=== PATIENT | male | born 1950 | race Caucasian/White ===

== ENCOUNTER → 2018-07-09 | Outpatient (CLI) | payer MEDICARE ==
[~2018-07-09] MED LIST: AMIO200T50 PO; AMIO400T5 PO; ASCO500T20 PO; ATEN-155 PO; CLD600T PO; DCS100C PO; FISH1CAP15 PO; HYDR25TA4 PO; LSNP20T PO; MULT-974 PO; POTA99TA18 PO; RANI150C11 PO; RIVA20TA2 PO
== END ==
LOC: CARD 13:31
PROVIDERS: ATTEND Internal Medicine Cardiovascular Disease
DX: I10 Essential (primary) hypertension (principal); I48.0 Paroxysmal atrial fibrillation; R06.02 Shortness of breath; E66.9 Obesity, unspecified; I08.1 Rheumatic disorders of both mitral and tricuspid valves
CPT/HCPCS: 93306

== ENCOUNTER → 2018-08-13 | Outpatient (CLI) | payer MEDICARE ==
[~2018-08-13] VITALS: Ht 193 cm; Wt 142.4 kg
[~2018-08-13] MED LIST changes: +CATHETER FLUSH 10 ML SYR IV PRN; +REGADENOSON 0.4 MG/5 ML SYR (LEXISCAN) IV ONE
[2018-08-13 09:24] VITALS: BP 152/79
[2018-08-13 09:39] VITALS: BP 108/67
--- NOTE | 2018-08-13 13:21 | STRESS TEST ---
DATE OF SERVICE: 08/13/2018 INDICATION: Chest pain. REFERRING PHYSICIAN: . Baseline heart rate is 61, baseline blood pressure 152/79. Baseline EKG is sinus rhythm with no ischemic changes. In summary, the patient was injected with 10.83 mCi of technetium-99 Myoview and the resting images were obtained. Then, the patient started exercising on standard Macario protocol. He was unable to exercise beyond 1 minute and 40 seconds on standard Macario protocol. Test was terminated and converted to Lexiscan Myoview stress test. The patient received 0.4 mg of Lexiscan followed by 29.6 mCi of technetium-99 Myoview. Throughout the test, there were no EKG changes. The resting and stress images were reviewed and compared in the short axis, horizontal long axis, and vertical long axis views. Review of the images showed diaphragmatic attenuation with typical male pattern, no significant ischemia or infarction was seen. SSS is 1. SDS is 1. TID value 1.0. On the gated images, the left ventricle appeared to be in normal size with normal contractility. Calculated ejection fraction is 61%. CONCLUSION: 1. The patient was unable to exercise beyond 1 minute and 40 seconds on standard Macario protocol, test was converted to Lexiscan, patient tolerated Lexiscan well. 2. Typical male pattern with diaphragmatic attenuation with no significant ischemia or infarction on SPECT images. 3. Normal left ventricular size with normal contractility. Calculated ejection fraction is 61%. Job ID: [id number] DocumentID: [id number] Dictated Date: 08/13/2018 11:39:42 Political Advisor Date: 08/13/2018 13:20:58 Dictated By: POOL SHAH MD
== END ==
LOC: CARD 07:15
PROVIDERS: ATTEND Internal Medicine Cardiovascular Disease
DX: R06.00 Dyspnea, unspecified (principal); I10 Essential (primary) hypertension; R06.02 Shortness of breath; I48.0 Paroxysmal atrial fibrillation; E66.9 Obesity, unspecified; Z68.38 Body mass index [BMI] 38.0-38.9, adult
CPT/HCPCS: 78452; 93017

== ENCOUNTER 2019-09-18 07:20 | Day surgery (SDC) | payer MEDICARE, OTHER ==
[2019-09-18] VITALS (7 sets, daily range): BP systolic 99–130; BP diastolic 55–88
[~2019-09-18] VITALS: Ht 193 cm; Wt 122.0 kg
[~2019-09-18 07:20] MED LIST changes: -CATHETER FLUSH 10 ML SYR IV PRN; -REGADENOSON 0.4 MG/5 ML SYR (LEXISCAN) IV ONE
[2019-09-18] MEDS ORDERED: LIDOCAINE 1% INJ 20 ML 20 ML VIAL ONE (07:26)
[2019-09-18] MEDS ORDERED: NS IV 1000 ML 1,000 ML ONE (07:26)
[2019-09-18] MEDS ORDERED: LIDOCAINE 2% VISCOUS 15 ML UDC ONE (07:26)
[2019-09-18] MEDS ORDERED: NS IV 1000 ML 1,000 ML IV ONE (07:28)
[2019-09-18] MEDS ORDERED: MIDAZOLAM 5 MG/5 ML (VERSED) VIAL IV ONE (07:30)
[2019-09-18] MEDS ORDERED: LIDOCAINE 2% VISCOUS 15 ML UDC PO ONE (07:30)
[2019-09-18] MEDS ORDERED: proPOfol 200 MG/20 ML (DIPRIVAN) VIAL IV ONE (07:47)
[2019-09-18] MEDS ORDERED: MIDAZOLAM 5 MG/5 ML (VERSED) VIAL ONE (07:47)
[2019-09-18 07:59] LABS: MEAN PLATELET VOLUME 10.4 FL (7.4-10.4); RED CELL DISTRIBUTION WIDTH 13.5 % (10.0-14.5); WHITE BLOOD COUNT 5.6 10^3/uL (4.3-11.0)
[2019-09-18 08:17] LABS: INR 1.1 (0.8-1.4); PROTHROMBIN TIME PATIENT 14.5 SEC (12.2-14.7)
--- NOTE | 2019-09-18 08:18 | Diagnostic Imaging Report ---
Indication: Arrhythmia, atrial fibrillation Portable chest 10:09 AM Heart size and pulmonary vascularity are normal. Lungs are clear. There are no effusions or pneumothoraces. IMPRESSION: Negative chest Dictated by: Dictated on workstation # [id number]
[2019-09-18 08:19] LABS: ALANINE AMINOTRANSFERASE 19 U/L (0-55); ALKALINE PHOSPHATASE 52 U/L (40-136); BILIRUBIN,TOTAL 0.6 MG/DL (0.1-1.0); BUN/CREATININE RATIO 21; CALCIUM 8.9 MG/DL (8.5-10.1); CARBON DIOXIDE 27 MMOL/L (21-32); CHLORIDE 106 MMOL/L (98-107); CHOLESTEROL 151 MG/DL (< 200); CREATININE SERUM 0.85 MG/DL (0.60-1.30); GFR ESTIMATED > 60; GLUCOSE 99 MG/DL (70-105); HDL CHOLESTEROL 49 MG/DL (40-60); POTASSIUM 4.2 MMOL/L (3.6-5.0); SODIUM 139 MMOL/L (135-145); TOTAL PROTEIN 6.3 GM/DL (6.4-8.2); TRIGLYCERIDES 60 MG/DL (<150); VLDL CHOLESTEROL 12 MG/DL (5-40)
--- NOTE | 2019-09-18 08:21 | Cardiac Procedure Note-CS/ASA ---
Pre-Procedure Note Pre-Op Procedure Note H&P Reviewed The H&P was reviewed, patient examined and no changes noted. Date H&P Reviewed: Sep 18, 2019 Time H&P Reviewed: 08:20 Conscious Sedation Pre-Proced Time 08:20 ASA Score 3 For ASA 3 and 4: Consider anesthesia and medical clearance. Also, for patients with a history of failed moderate sedation consider anesthesia. Airway Lungs Heart ASA score ASA 1: a normal healthy patient ASA 2: a patient with a mild systemic disease (mid diabetes, controlled hypertension, obesity x ASA 3: a patient with a severe systemic disease that limits activity (angina, COPD, prior Myocardial infarction) ASA 4: a patient with an incapacitating disease that is a constant threat to life (CHF, renal failure) ASA 5: a moribund patient not expected to survive 24 hrs. (ruptured aneurysm) ASA 6: a declared brain- patient whose organs are being harvested. For emergent operations, add the letter E after the classification Mallampati Classification Grade 3 Sedation Plan Analgesia, Amnesia, Plan communicated to team members, Discussed options with patient/fam, Discussed risks with patient/fam The patient is an appropriate candidate to undergo the planned procedure, sedation, and anesthesia. The patient immediately re-assessed prior to indication. POOL SHAH MD Sep 18, 2019 08:21
[2019-09-18] MEDS ORDERED: AMLO2.5T4 PO (08:26)
[2019-09-18] MEDS ORDERED: ATOR10TA66 PO (08:26)
[2019-09-18] MEDS ORDERED: APIX5TAB PO (08:26)
[2019-09-18] MEDS ORDERED: ASPI-983 PO (08:26)
[2019-09-18] MEDS ORDERED: DRON400T2 PO (10:24)
--- NOTE | 2019-09-18 10:26 | Cardioversion ---
Cardioversion PROCEDURE PHYSICIAN: Pool Tapai DATE OF PROCEDURE: 09/18/19 DIRECT EXTERNAL ELECTRICAL CARDIOVERSION: Indications: Atrial Fibrillation with rapid ventricular rate Preoperative diagnoses: Atrial Fibrillation with rapid ventricular rate Postoperative diagnosis: Sinus rhythm, Successful Electrical Cardioversion History: 69-year-old gentleman with history of atrial fibrillation ablation, has been doing well, seen in my office and noted to be in atrial fibrillation. Asymptomatic. Started on oral anticoagulation again and brought for KOTA and cardioversion and I will start him on antiarrhythmic medication after cardioversion Anesthesia: By Anesthesia services Complications: None Specimen: None Contrast: 0 Flouroscopy: none Procedure Details: The patient was brought the labor conciliator after informed consent was taken, all the risks and complications were explained including the risk of stroke. Electrical cardioversion was carried out with anesthesia support with propofol. 200 joules of synchronized shock was delivered through external patches which failed initially with 120 J repeat shock with 150 J promptly restored sinus rhythm. The patient tolerated the procedure well. Conclusions: Successful cardioversion in terminating atrial fibrillation Final Diagnosis: Paroxysmal atrial fibrillation Hypertension Hyperlipidemia POOL TAPIA MD Sep 18, 2019 10:26
--- NOTE | 2019-09-18 10:27 | Implantation of Loop Monitor ---
Implant of Loop Monitior IMPLANTATION OF LOOP MONITOR REPORT DATE OF PROCEDURE: 09/18/19 PREOP DIAGNOSIS: Paroxysmal atrial fibrillation POSTOP DIAGNOSIS: Paroxysmal atrial fibrillation PROCEDURE DETAILS: The patient is a 69 male with history of paroxysmal atrial fibrillation requiring long-term surveillance. Therefore implantable loop recorder was discussed and agreed with the patient. Informed consent was taken. All risks and complications were discussed at length. The patient was draped and prepped in the usual sterile fashion. Local anesthesia was lidocaine, which was given in the substernal area close to the 4th intercostal space. Loop monitor Med[employer]onic [id number] was implanted according to the protocol. Steri-Strips were placed at the end of the procedure. There were no complications and the patient tolerated the procedure well. The device was interrogated with a voltage of. ANESTHESIA: Local anesthesia with lidocaine. COMPLICATIONS: None CONTRAST/FLUOROSCOPY: None CONCLUSION: Successful implantation for loop recorder FINAL DIAGNOSIS: Paroxysmal atrial fibrillation Hypertension Hyperlipidemia POOL SHAH MD Sep 18, 2019 10:27
--- NOTE | 2019-09-18 11:09 | NUR ---
SEE ANESTHESIA RECORD FOR DETAILS. 80MG PROPOFOL GIVEN TOTAL.
[2019-09-18] MEDS ORDERED: LIDOCAINE 1% INJ 20 ML 20 ML VIAL INJ ONE (11:15)
--- NOTE | 2019-09-18 12:52 | Anesthesia-General Post-Op ---
MAC Patient Condition Mental Status/LOC: Same as Preop Cardiovascular: Satisfactory Nausea/Vomiting: Absent Respiratory: Satisfactory Pain: Controlled Complications: Absent Post Op Complications Complications None Follow Up Care/Instructions Patient Instructions None needed. Anesthesiology Discharge Order Discharge Order Patient is doing well, no complaints, stable vital signs, no apparent adverse anesthesia problems. No complications reported per nursing. CHRISTIN DOWNS CRNA Sep 18, 2019 12:52
== END 2019-09-18 11:30 | disposition home or self-care (01) ==
LOC: SDC 07:20
PROVIDERS: ATTEND Internal Medicine Cardiovascular Disease
DX: I48.0 Paroxysmal atrial fibrillation (principal); I10 Essential (primary) hypertension; E78.5 Hyperlipidemia, unspecified; G47.33 Obstructive sleep apnea (adult) (pediatric); I65.23 Occlusion and stenosis of bilateral carotid arteries; I34.0 Nonrheumatic mitral (valve) insufficiency; Z79.899 Other long term (current) drug therapy; Z87.891 Personal history of nicotine dependence; Z79.01 Long term (current) use of anticoagulants
CPT/HCPCS: 33285; 36415; 71045; 80053; 80061; 85027; 85610; 85730; 87081; 92960; 93005; 93312; 93320; 93325

== ENCOUNTER → 2020-02-26 | Outpatient (CLI) | payer MEDICARE, OTHER ==
[~2020-02-26] MED LIST changes: +AMLO2.5T4 PO; +APIX5TAB PO; +ASPI-983 PO; +ATOR10TA66 PO; +DRON400T2 PO
== END ==
LOC: LABNPT 08:25
PROVIDERS: ATTEND Internal Medicine
DX: Z20.828 Contact with and (suspected) exposure to other viral communicable diseases (principal)
CPT/HCPCS: 87635

== ENCOUNTER → 2020-09-14 | Outpatient (CLI) | payer MEDICARE, OTHER ==
[~2020-09-14] MED LIST changes: +ASPI-1238 PO; -ASPI-983 PO
== END ==
LOC: CARD 13:45
PROVIDERS: ATTEND Internal Medicine Cardiovascular Disease
DX: I11.9 Hypertensive heart disease without heart failure (principal)
CPT/HCPCS: 93306

== ENCOUNTER → 2020-10-14 | Outpatient (CLI) | payer MEDICARE, OTHER ==
--- NOTE | 2020-10-14 10:23 | Diagnostic Imaging Report ---
PROCEDURE: US Gallbladder. TECHNIQUE: Multiple real-time grayscale images were obtained over the right upper quadrant in various projections. INDICATION: Nausea. COMPARISON: There are no prior studies available for comparison. FINDINGS: There is no evidence for cholelithiasis or acute cholecystitis and the common bile duct is not dilated. The liver does not appear to be enlarged and there is no focal mass involving the liver. The biliary tree is not abnormally distended. Spectral and color-flow imaging of the portal vein shows the vein is patent. The pancreas, the aorta, and the inferior vena cava were obscured by bowel gas. The right kidney is generally unremarkable. IMPRESSION: 1. There is no acute abnormality of the right upper quadrant. 2. If clinical concern regarding an underlying abnormality of the gallbladder persists and further imaging is desired, then a nuclear medicine hepatobiliary scan would be recommended. Dictated by: Dictated on workstation # [id number]
== END ==
LOC: RAD 08:39
PROVIDERS: ATTEND Internal Medicine
DX: R11.0 Nausea (principal)
CPT/HCPCS: 76705

== ENCOUNTER → 2020-10-30 | Outpatient (CLI) | payer MEDICARE, OTHER ==
[~2020-10-30] MED LIST changes: +CATHETER FLUSH 10 ML SYR IV PRN
--- NOTE | 2020-10-30 14:50 | Diagnostic Imaging Report ---
INDICATION: Nausea. TECHNIQUE: Patient was administered 5.4 mCi technetium 99m Choletec intravenously and imaging over the abdomen was performed. At 30 minutes patient ingested 8 ounces of Ensure and gallbladder ejection fraction was calculated. FINDINGS: Homogeneous uptake of activity by the liver with prompt excretion of activity into the gallbladder and common duct. There is normal passage of activity into the small bowel. Gallbladder ejection fraction is normal at 40%. IMPRESSION: Normal HIDA scan and gallbladder ejection fraction. Dictated by: Dictated on workstation # [id number]
== END ==
LOC: CARD 10:00
PROVIDERS: ATTEND Internal Medicine
DX: R11.0 Nausea (principal)
CPT/HCPCS: 78227; A9537

== ENCOUNTER 2021-04-09 12:00 | Day surgery (SDC) | payer MEDICARE, OTHER ==
[2021-04-09] VITALS (10 sets, daily range): BP systolic 122–157; BP diastolic 61–96
[~2021-04-09] VITALS: Ht 193 cm; Wt 275.0 kg
--- NOTE | 2021-04-09 10:35 | Diagnostic Imaging Report ---
HISTORY: Chest pain. COMPARISON: 09/18/2019 TECHNIQUE: Frontal view of the chest. FINDINGS: Lung volumes are normal. No focal consolidation is seen. There is no pleural effusion or pneumothorax. The cardiac silhouette is normal in size. 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 IMPRESSION: 1. No acute pulmonary abnormality. Dictated by: Dictated on workstation # [id number]
[2021-04-09 10:43] LABS: HEMATOCRIT 49 % (40-54); HEMOGLOBIN 16.6 g/dL (13.3-17.7); MEAN CORPUSCULAR HEMOGLOBIN 31 pg (25-34); MEAN CORPUSCULAR HGB CONC 34 g/dL (32-36); MEAN CORPUSCULAR VOLUME 92 fL (80-99); PLATELET COUNT 234 10^3/uL (130-400); WHITE BLOOD COUNT 6.4 10^3/uL (4.3-11.0)
[2021-04-09 10:57] LABS: POTASSIUM 3.7 MMOL/L (3.6-5.0)
[2021-04-09 10:58] LABS: ALBUMIN 4.1 GM/DL (3.2-4.5)
[2021-04-09 11:00] LABS: TOTAL PROTEIN 6.7 GM/DL (6.4-8.2)
[2021-04-09 11:02] LABS: BILIRUBIN,TOTAL 0.7 MG/DL (0.1-1.0)
[2021-04-09 11:04] LABS: CREATININE SERUM 1.04 MG/DL (0.60-1.30)
[~2021-04-09 12:00] MED LIST changes: +AMIO200T6 PO; -CATHETER FLUSH 10 ML SYR IV PRN; -DRON400T2 PO; +DRON400T6 PO; +HEParin (CATH LAB) 2,000 ML IV ONE; +LIDOCAINE 1% INJ 20 ML 20 ML VIAL ONE; +LISI40TA9 PO; +MULT-1136 PO; +NS IV 1000 ML 1,000 ML IV SCH; +NS IV 1000 ML 1,000 ML ONE
[2021-04-09] MEDS ORDERED: fentaNYL INJ 100 MCG/2 ML AMP ONE (12:25)
[2021-04-09] MEDS ORDERED: VERAPAMIL 5 MG/2 ML (CALAN) VIAL IV ONE (12:25)
[2021-04-09] MEDS ORDERED: NITRO DRIP 25000 MCG/D5W 250 ML IV ONE (12:26)
[2021-04-09] MEDS ORDERED: MIDAZOLAM 5 MG/5 ML (VERSED) VIAL ONE (12:26)
[2021-04-09] MEDS ORDERED: HEParin 1000 UNIT/ML (10ML VIAL) FOR BOLUS ONE (12:26)
[2021-04-09] MEDS ORDERED: ceFAZolin INJECTION 0 MG ONE (12:26)
[2021-04-09] MEDS ORDERED: CLOPIDOGREL 300 MG (PLAVIX) TABLET PO ONE (13:43)
[2021-04-09] MEDS ORDERED: ASPIRIN 325 MG (5 GR) TABLET ONE (13:43)
--- NOTE | 2021-04-09 13:45 | Cardiac Cath Report ---
Cardiac Cath Report Physician (s)/Grey Inspector (s) Physician POOL SHAH MD Pre-Procedure Diagnosis Pre-Procedure Diagnosis: Coronary artery disease Post-Procedure Note Procedure Start Date: Apr 09, 2021 Procedure Start Time: 13:40 Name of Procedure: Left heart catheterization Stenting to the right coronary artery Findings/Procedure Note PROCEDURE NOTE: 70-year-old gentleman with a history of coronary artery disease, hypertension hyperlipidemia noted to have multiple sinus pauses up to 18 seconds, patient has been symptomatic having episodes of dizziness and nausea and chest pain. Decided schedule him for cardiac catheterization and dual-chamber pacemaker implant. After explaining the procedure to the patient, all pros and cons were explained, all questions were answered. The patient signed the consent and then he was placed on the cardiac catheterization laboratory. Groin was prepped SL fashion local anesthesia was used. Sheath placed in the right radial artery, [place] catheter was advanced to the left ventricular cavity, left ventriculogram was done, pullback LV to aorta was done, intubated the right and left coronary system and angiogram was done Patient has severe stenosis in the right coronary artery long lesion. Given additional dose of heparin a total of 6000 units of heparin, FIR guide was adva nced to the right coronary system, BMW wire was advanced and parked distally. I placed initially a proximal stent 2.75 x 23 mm, angiogram showed the lesion distally to be significant. Tried nitroglycerin without improvement decided to stent the second stent 2 seven 5 x 23 mm dilated both stents up to 2.9 mm with excellent results. At the end of the procedure the sheath was removed. Vascular band was used FINDINGS: Hemodynamics LV 102/10 end-diastolic pressure of 10 Aorta 104/64 mean of 69 ANATOMY: Left Main is free of obstructive disease Left Anterior Descending is tortuous with mild disease nonobstructive disease Left Circumflex has mild disease nonobstructive disease Right Coronary Artery is moderate in size with long segment of stenosis, successful deployment of 2 overlapping stent Michelle 2.75 x 23 followed by 2.75 x 23 expanded to 2.9 mm with excellent results LV Gram was done showing normal left ventricular size, ejection fraction 60% CONCLUSION: 1. Severe long segment stenosis in the proximal and mid right coronary artery successful deployment of 2 overlapping Michelle stents both of them were 2.75 x 23 expanded to 2.9 mm 2. Tortuous LAD system with mild disease nonobstructive disease 3. Normal left ventricular size and function, ejection fraction 60% DISCUSSION AND RECOMMENDATION: Continue to maximize medical therapy and we will postpone the pacemaker p rocedure Anesthesia Type: Conscious Sedation Estimated blood loss (mL): 25 ml Contrast Amount: 94 ml Total Radiation Dose: 1016 mGy Post-Procedure Diagnosis Post-operative diagnosis: Chest pain Coronary artery disease Sinus node dysfunction Hypertension POOL SHAH MD Apr 09, 2021 13:45
[2021-04-09] MEDS: NS IV 1000 ML 1,000 ML IV SCH ×2 (15:18→23:52)
[2021-04-09] MEDS ORDERED: AtorvaSTATin TABLET 10 MG TABLET PO SCH (21:00)
[2021-04-09] MEDS ORDERED: lisINopril 40 MG (PRINIVIL) TABLET PO SCH (21:00)
[2021-04-10] VITALS: BP 124/69
[2021-04-10 04:00] VITALS: BP 97/59
[2021-04-10 05:31] LABS: HEMATOCRIT 44 % (40-54); HEMOGLOBIN 14.6 g/dL (13.3-17.7); MEAN CORPUSCULAR HEMOGLOBIN 31 pg (25-34); MEAN CORPUSCULAR HGB CONC 33 g/dL (32-36); MEAN CORPUSCULAR VOLUME 92 fL (80-99); MEAN PLATELET VOLUME 10.3 fL (9.0-12.2); PLATELET COUNT 204 10^3/uL (130-400); WHITE BLOOD COUNT 6.1 10^3/uL (4.3-11.0)
[2021-04-10 05:50] LABS: ALBUMIN 3.5 GM/DL (3.2-4.5); POTASSIUM 3.7 MMOL/L (3.6-5.0)
[2021-04-10 05:51] LABS: CALCIUM 8.6 MG/DL (8.5-10.1)
[2021-04-10 05:52] LABS: TOTAL PROTEIN 5.7 GM/DL (6.4-8.2)
[2021-04-10 05:54] LABS: BILIRUBIN,TOTAL 0.6 MG/DL (0.1-1.0)
[2021-04-10 05:56] LABS: CREATININE SERUM 0.93 MG/DL (0.60-1.30)
[2021-04-10] MEDS ORDERED: MULTIVIT W/MINERALS TAB (THERAGRAN M) PO SCH (07:00)
[2021-04-10 08:20] VITALS: BP 128/79
[2021-04-10] MEDS ORDERED: CLOP75TA28 PO (08:58)
[2021-04-10] MEDS ORDERED: ASPI-1238 PO (08:58)
[2021-04-10] MEDS ORDERED: AMIODARONE 200 MG (CORDARONE) TAB PO SCH (09:00)
[2021-04-10] MEDS ORDERED: amLODIPine 2.5MG (NORVASC) TAB PO SCH (09:00)
[2021-04-10] MEDS ORDERED: NON-FORMULARY MEDICATION 1 EA EA (Multivitamin 1 EACH) PO SCH (09:00)
[2021-04-10] MEDS ORDERED: ASPIRIN E.C. 81 MG (ECOTRIN) TAB PO SCH (09:00)
[2021-04-10] MEDS ORDERED: CLOPIDOGREL 75 MG (PLAVIX) TABLET PO SCH (09:00)
[2021-04-10] MEDS ORDERED: PANTOPRAZOLE 40 MG (PROTONIX) TAB PO SCH (09:00)
--- NOTE | 2021-04-10 09:00 | Discharge Inst-Post CATH ---
Discharge Inst-CATH/EP Problems Reviewed?: Yes Post Cardiac Cath/EP D/C Inst Follow Up/Plan Continue to hold Eliquis and amiodarone Return to the hospital on Monday, April 20, 2021 at 8 AM to proceed with pacemaker placement No food or drink or medication after midnight on Monday in preparation for the procedure on Monday <b>CARDIAC CATH/EP PROCEDURE DISCHARGE INSTRUCTIONS</b> ACTIVITY * Go Home directly and rest. * Limit activity of the leg (or wrist if it was used) for 7 days including aerobics, swimming, jogging, bicycling, etc. * Restrict stair-climbing for 7 days if possible, if not, climb up with your non-cath leg, then bring together on the same step. * Avoid lifting, pushing, pulling or excessive movement of the affected extremity for 7 days. * Customary sexual activity may be resumed after 2 days-use caution not to use a position that strains or causes pain to the affected extremity. * No driving for 24 hours. * NO SMOKING. * Avoid straining for bowel movements for 7 days. * Gentle walking on level ground is allowed. * Returning to work will depend on the type of procedure and the results. Your doctor will discuss this with you. CALL YOUR DOCTOR FOR ANY OF THE FOLLOWING: *If bleeding from the puncture site occurs- Apply gentle pressure to site with clean cloth and call your doctor or EMS. * If a knot or lump forms under the skin, increases in size, or causes pain. * If bruising appears to be worsening or moving further down your leg instead of disappearing. * Temperature above 101 F. CARE OF YOUR GROIN INCISION; * Bruising or purple discoloration of the skin near the puncture site is common. * You may shower only, no bathtub bathing for 5 days. Be careful to avoid slipping as your leg may feel stiff. * If a closure device was used on your femoral artery, please see the attached guide regarding care of the device and your leg. * Leave dressing on FOR 24 hours. CARE OF YOUR WRIST INCISION; * Bruising or purple discoloration of the skin near the puncture site is common. * You may shower. * DO NOT submerge wrist. * Leave dressing on FOR 24 hours. POOL SHAH MD Apr 10, 2021 09:00
--- NOTE | 2021-04-10 09:03 | Cardiology Progress Note ---
Subjective Date Seen by Provider: Apr 10, 2021 Time Seen by Provider: 09:00 Subjective/Events-last exam Patient is laying down in bed, feeling well, heart rate was in the mid fifties overnight. No pauses were documented on telemetry Review of Systems General: No Chills, No Night Sweats, No Fatigue, No Malaise, No Appetite, No Other HEENT: No Head Aches, No Visual Changes, No Eye Pain, No Ear Pain, No Dysphasia, No Sinus Congestion, No Post Nasal Drip, No Sore Throat, No Other Pulmonary: No Dyspnea, No Cough, No Pleuritic Chest Pain, No Other Cardiovascular: No: Chest Pain, Palpitations, Orthopnea, Paroxysmal Noc. Dy spnea, Edema, Lt Headedness, Other Objective-Cardiology Exam Last Set of Vital Signs Vital Signs 04/10/21 04/10/21 08:20 08:38 Temp 36.0 Pulse 61 Resp 18 B/P (MAP) 128/79 (95) Pulse Ox 95 O2 Delivery Room Air I&O Intake and Output 04/10/21 00:00 Intake Total 975 ml Output Total 350 ml Balance 625 ml Intake Oral 875 ml IV Total 100 ml Output Urine Total 350 ml General: Alert, Oriented X3, Cooperative HEENT: Atraumatic, PERRLA Neck: Supple, No JVD, No Thyromegaly Lungs: Clear to Auscultation, Normal Air Movement Heart: Regular Rate, Normal S1, Normal S2, No Murmurs Abdomen: Normal Bowel Sounds, Soft, No Tenderness, No Hepatosplenomegaly, No Masses Extremities: No Clubbing, No Cyanosis, No Edema, Normal Pulses, No Tenderness/Swelling Skin: No Rashes, No Breakdown, No Significant Lesion Neuro: Normal Gait, Normal Speech, Strength at 5/5 X4 Ext, Normal Tone, Sensation Intact Psych/Mental Status: Mental Status NL, Mood NL Results Lab Laboratory Tests 04/09/21 10:35 04/10/21 04:56 A/P-Cardiology Admission Diagnosis Coronary artery disease Sinus node dysfunction Paroxysmal atrial fibrillation Hypertension Assessment/Plan Coronary artery disease, cardiac catheterization carried out on 04/09/2021 with 2 stents to the right coronary artery with excellent results. Patient was loaded with 600 mg of Plavix and aspirin 325 mg. I instructed him to hold amiodarone and Eliquis Sinus node dysfunction, multiple pauses, probably due to underlying sleep apnea, had a long pause up to 18 sec on loop monitor. Has been symptomatic, felt very nauseous and started vomiting. I am planning to proceed with dual-chamber pacemaker implantation, I postponed the procedure due to the load with heparin and aspirin and Plavix. I am planning to proceed with pacemaker placement on April 12, 2021 Paroxysmal atrial fibrillation, has been maintained on amiodarone, currently amiodarone and Eliquis on hold due to nausea and severe bradycardia. Still in sinus rhythm, I am planning to proceed with pacemaker placement on April 12, 2021 then I will restart Eliquis and low-dose amiodarone Hypertension, continue current medication monitor blood pressure Hyperlipidemia, continue current medication monitor POOL SHAH MD Apr 10, 2021 09:03
[2021-04-10] MEDS: NS IV 1000 ML 1,000 ML IV SCH (19:35)
[2021-04-12] MEDS ORDERED: APIX5TAB PO (08:16)
== END 2021-04-10 09:40 ==
LOC: CATH 12:00 → ICU 14:19 → CSD 19:00 → CATH 04-10 09:40
PROVIDERS: ATTEND Internal Medicine Cardiovascular Disease
DX: R07.9 Chest pain, unspecified (principal); R42 Dizziness and giddiness; I25.10 Atherosclerotic heart disease of native coronary artery without angina pectoris; I49.5 Sick sinus syndrome; I49.1 Atrial premature depolarization; I45.81 Long QT syndrome; I48.0 Paroxysmal atrial fibrillation; I11.9 Hypertensive heart disease without heart failure; G47.30 Sleep apnea, unspecified; E78.2 Mixed hyperlipidemia; E66.9 Obesity, unspecified; I65.23 Occlusion and stenosis of bilateral carotid arteries; Z68.45 Body mass index [BMI] 70 or greater, adult; Z79.899 Other long term (current) drug therapy; Z79.01 Long term (current) use of anticoagulants; Z86.16 Personal history of COVID-19; Z86.2 Personal history of diseases of the blood and blood-forming organs and certain disorders involving the immune mechanism
CPT/HCPCS: 71045; 80053 ×2; 80061; 85027 ×2; 85610; 85730; 87081; 93005; 93458; C1769; C1874; C1887; C9600; 36415

== ENCOUNTER 2021-04-12 12:02 | Day surgery (SDC) | payer MEDICARE, OTHER ==
[~2021-04-12] VITALS: Ht 193 cm; Wt 125.0 kg
[2021-04-12 08:08] VITALS: BP 150/85
--- NOTE | 2021-04-12 09:02 | Conscious Sedation/ASA ---
Conscious Sedation Pre-Proced Time 09:02 ASA Score 3 For ASA 3 and 4: Consider anesthesia and medical clearance. Also, for patients with a history of failed moderate sedation consider anesthesia. Airway Lungs Heart ASA score ASA 1: a normal healthy patient ASA 2: a patient with a mild systemic disease (mid diabetes, controlled hypertension, obesity x ASA 3: a patient with a severe systemic disease that limits activity (angina, COPD, prior Myocardial infarction) ASA 4: a patient with an incapacitating disease that is a constant threat to life (CHF, renal failure) ASA 5: a moribund patient not expected to survive 24 hrs. (ruptured aneurysm) ASA 6: a declared brain- patient whose organs are being harvested. For emergent operations, add the letter E after the classification Mallampati Classification Grade 3 Sedation Plan Analgesia, Amnesia, Plan communicated to team members, Discussed options with patient/fam, Discussed risks with patient/fam The patient is an appropriate candidate to undergo the planned procedure, sedation, and anesthesia. The patient immediately re-assessed prior to indication. POOL SHAH MD Apr 12, 2021 09:02
--- NOTE | 2021-04-12 10:01 | Permanent Pacemaker Implant ---
Dual Chamber Pacemaker Implant PROCEDURE PHYSICIAN: Pool Tapia DUAL CHAMBER PACEMAKER IMPLANTATION: DATE OF PROCEDURE: 04/12/21 INDICATION: Sinus node dysfunction PREOPERATIVE DIAGNOSIS: Sinus node dysfunction POSTOPERATIVE DIAGNOSIS: Sinus node dysfunction HISTORY: Dual-chamber permanent pacemaker was recommended. PROCEDURE PERFORMED: 1. Dual-chamber permanent pacemaker implantation. 2. Fluoroscopy. 3. Central venous access. ANESTHESIA: Local anesthesia, conscious sedation. COMPLICATIONS: None. ESTIMATED BLOOD LOSS:20 mL. SPECIMENS: None. ORAL ANTICOAGULATION: None. FLUOROSCOPY TIME: FLUOROSCOPY DOSE: CONTRAST DOSE: PROCEDURE DETAILS: The patient is a 70 male and after all of the patients with coronary artery disease, underwent stenting on April 09, 2021, had a loop monitor which showed multiple pauses due to sinus node dysfunction, had a long pause for 18 seconds while asleep probably due to the combination of sleep apnea and sinus node dysfunction, patient reported that that night he felt extremely nauseous and felt dizzy and lightheaded and threw up. He has been using CPAP machine. He was scheduled for dual-chamber pacemaker implant. Patient was brought to the EP Lab. The patient's left chest was prepped and draped in sterile fashion. A 2 inch horizontal incision was made 1 cm below the clavicle and dissection carried down to the pectoralis fascia. Using the modified Seldinger technique and under fluoroscopy guidance, the anter ior aspect of the left axillary vein was accessed 2 times. The J wires were secured to the drapes with a mosquito clamp. A 7-[place] sheath was introduced over one of the J-wires. The RV lead was then inserted. The RV lead was directed across the tricuspid valve to the apical septal portion of the right ventricle. The position was checked in HUNGARIAN and GONG views. The screw was deployed and the lead connected to the network programmer. Close sensing and pacing thresholds were obtained. Diaphragmatic pacing was ruled out. The lead was secured with 2-0 silk ties to the underlying muscle and fascia. Next, a 7-[place] sheath was introduced through the remaining J-wire. An atrial lead was then introduced and guided to the level of the right appendage. The screw was deployed and the lead was connected to the interrogator. Good sensing and pacing thresholds were obtained. Diaphragmatic pacing was ruled out. The leads were secured with 2-0 silk ties to the underlying muscle and fascia. The leads were connected to the device in a hermetic fashion. The device and leads were placed in the pocket. Aggressive irrigation with saline solution was done. The device was secured to the underlying muscle and fascia with a 2-0 silk tie. interrogation of the device revealed good integrity of all the leads and good connections. Tyreck pocket was used to limit the infection rate The wound was then closed using 2 layers. The first layer was interrupted 2-0 absorbable Vicryl suture. The last layer was a single subcuticular layer with 4- 0 Vicryl suture. Half inch Steri-Strips and a small dressing were then applied to the wound. The patient tolerated the procedure well and was returned to the recovery room in stable condition with stable vital signs. DEVICE INFORMATION: ROHIT XT DR MRI Serial number [id number] RA LEAD: [id number] RV LEAD: [id number] PER-OPERATIVE DEVICE INTERROGATION: Good sensing and capture activity IMMEDIATE POSTOPERATIVE DEVICE INTERROGATION: Right atrium, bipolar, threshold 0.4 ms at 0.5 V, impedance 470, P wave 2.8 Right atrium, bipolar, threshold 0.4 ms at 0.5 V, impedance 540, R wave 8.3 PLAN: The patient transferred to the ICU. We will continue with two more doses of IV antibiotics. We will check a chest x-ray and interrogate the device in the morning. The patient will continue on oral antibiotics for 5 days. CONCLUSION: Successful implantation of dual-chamber pacemaker with no complication FINAL DIAGNOSIS: Sinus node dysfunction Symptomatic bradycardia Paroxysmal atrial fibrillation Coronary artery disease Hypertension POOL TAPIA MD Apr 12, 2021 10:01
[~2021-04-12 12:02] MED LIST changes: +CLOP75TA28 PO; +HEParin (CATH LAB) 1,000 ML IV ONE; -HEParin (CATH LAB) 2,000 ML IV ONE; -NS IV 1000 ML 1,000 ML ONE; +NS IV 1000 ML 2,000 ML ONE; +PATIENT MAY USE OWN MEDS, ALL PO SCH; +ceFAZolin INJECTION 1,000 MG ONE
--- NOTE | 2021-04-12 13:28 | Diagnostic Imaging Report ---
INDICATION: Heart disease. Comparison made with prior examination from 04/09/2021 FINDINGS: Heart size is normal. There has been interval placement of a transvenous pacemaker. Lungs are otherwise clear. No pleural effusion or pneumothorax. IMPRESSION: Interval placement of a transvenous pacemaker without evidence of pneumothorax. Dictated by: Dictated on workstation # [id number]
[2021-04-12] MEDS ORDERED: LIDOCAINE 1% INJ 20 ML 20 ML VIAL ONE (15:27)
--- NOTE | 2021-04-12 15:29 | Consultation - Surgery ---
CRYSTAL HDEZAH [place] 04/12/21 1529: History of Present Illness History of Present Illness Patient Consulted On(fredrick/time) 04/12/21 15:23 Date Seen by Provider: Apr 12, 2021 Time Seen by Provider: 15:00 Reason for Visit: Loop removal History of Present Illness Patient is a 70 y/o male who had a permanent pacemaker placed today. Surgery was consulted to remove his loop recorder. Loop recorder showed patient's heart stopped beating for 18 seconds on 06 April. Patient underwent coronary stenting on 09 April. Pacemaker was placed on 12 April. Patient reports a history of HTN and Atrial fibrillation. Patient is doing well after the pacemaker placement today. Allergies and Home Medications Allergies Coded Allergies: fluconazole (Verified Allergy, Unknown, 09/14/20) Patient Home Medication List Amlodipine Besylate (Amlodipine Besylate) 2.5 Mg Tablet, 2.5 MG PO DAILY, (Reported) Entered as Reported by: NESTOR BOLAND on 09/18/19 0826 Last Action: Continued Apixaban (Eliquis) 5 Mg Tablet, 5 MG PO BID, (Reported) Entered as Reported by: JANELLE RIVERA on 04/12/21 0816 Last Action: Held Aspirin (Aspirin EC) 81 Mg Tablet.dr, 81 MG PO DAILY Prescribed by: POOL SHAH on 04/10/21857 Last Action: Continued Atorvastatin Calcium (Atorvastatin Calcium) 10 Mg Tablet, 10 MG PO HS, (Reported) Entered as Reported by: NICOLE FLOWERS on 04/09/211108 Last Action: Continued Clopidogrel Bisulfate (Clopidogrel) 75 Mg Tablet, 75 MG PO DAILY Prescribed by: POOL SHAH on 04/10/21857 Last Action: Continued Hydrochlorothiazide (Hydrochlorothiazide) 25 Mg Tablet, 25 MG PO DAILY, (Reported) Entered as Reported by: NICOLE FLOWERS on 04/09/211108 Last Action: Continued Lisinopril (Lisinopril) 40 Mg Tablet, 40 MG PO HS, (Reported) Entered as Reported by: NICOLE FLOWERS on 04/09/211108 Last Action: Continued Multivitamin (Multivitamin) 1 Each Tablet, 1 EACH PO DAILY, (Reported) Entered as Reported by: NICOLE FLOWERS on 04/09/211108 Last Action: Converted Discontinued Medications Amiodarone HCl (Amiodarone HCl) 200 Mg Tablet, 200 MG PO DAILY, (Reported) Entered as Reported by: NICOLE FLOWERS on 04/09/21 1109 Apixaban (Eliquis) 5 Mg Tablet, 5 MG PO BID, (Reported) Entered as Reported by: NESTOR BOLAND on 09/18/19825 Aspirin (Aspirin EC) 81 Mg Tablet.dr, 81 MG PO DAILY, (Reported) Discontinued Reason: No Longer Taking Entered as Reported by: NESTOR BOLAND on 09/18/19825 Atorvastatin Calcium (Atorvastatin Calcium) 10 Mg Tablet, 10 MG PO DAILY, (Reported) Discontinued Reason: No Longer Taking Entered as Reported by: NESTOR BOLAND on 09/18/19825 Docusate Sodium (Colace) 100 Mg Capsule, 100 MG PO DAILY, (Reported) Discontinued Reason: No Longer Taking Entered as Reported by: BRITTANY THOMSON on 09/04/13820 Dronedarone HCl (Multaq) 400 Mg Tablet, 400 MG PO BID Discontinued Reason: No Longer Taking Prescribed by: POOL SHAH on 09/18/19 1024 Hydrochlorothiazide (Hydrochlorothiazide) 25 Mg Tablet, 25 MG PO DAILY, (Reported) Discontinued Reason: No Longer Taking Entered as Reported by: BRIANNE PETE on 01/08/14 1051 Lisinopril (Zestril) 20 Mg Tab, 20 MG PO HS, (Reported) Discontinued Reason: No Longer Taking Entered as Reported by: BRIANNE PETE on 01/08/14 1051 Multivitamin (Multi Vitamin Daily) 1 Each Tablet, 1 TAB PO DAILY, (Reported) Discontinued Reason: No Longer Taking Entered as Reported by: BRITTANY THOMSON on 09/04/13820 Past Afcuhek-Sawehc-Lhguja Hx Patient Social History Smoking Status: Former Smoker (2 packs/day for 22 years. Quit 25-30 years ago.) Type Used: Cigarettes Recent Hopitalizations: No Alcohol Use?: Yes (4 beers/day 3 times a week.) Substance type: Caffeine (2-3 cups of coffee a day), Nicotine Immunizations Up To Date Date of Pneumonia Vaccine: Sep 18, 2016 Surgeries Surgeries: Appendectomy, Coronary Stent Respiratory History of Respiratory Disorde: No Respiratory Disorders: Sleep Apnea Cardiovascular History of Cardiac Disorders: Yes (AFIB) Cardiac Disorders: Atrial Fibrillation, Coronary Artery Disease, Hypertension Neurological History of Neurological Disord: No Gastrointestinal History of Gastrointestinal Di: Yes (HEMRHOIDS) Gastrointestinal Disorders: Hemorrhoids Cancer History of Cancer: No Family Medical History Significant Family History: Heart Disease (Heart issues in father) Review of Systems-General Constitutional: No chills, No dizziness, No fever EENTM: No blurred vision, No vision loss Respiratory: No cough, No dyspnea on exertion Cardiovascular: No chest pain, No palpitations Gastrointestinal: No abdominal pain, No nausea, No vomiting Genitourinary: No dysuria, No frequency Musculoskeletal: No joint pain, No muscle pain Physical Exam-General Problems Physical Exam Vital Signs Vital Signs - First Documented 04/12/21 04/12/21 08:08 10:30 Temp 36.5 Pulse 60 Resp 18 B/P (MAP) 150/85 (106) Pulse Ox 96 O2 Delivery Room Air Capillary Refill : General Appearance: WD/WN, no apparent distress Eyes: Bilateral Eye PERRL, Bilateral Eye EOMI Neck: supple, normal inspection Respiratory: chest non-tender, lungs clear, normal breath sounds, no respiratory distress, no accessory muscle use Cardiovascular: normal peripheral pulses, regular rate, rhythm, no murmur Peripheral Pulses: 2+ Dorsalis Pedis (R), 2+ Left Dors-Pedis (L), 2+ Radial Pulses (R), 2+ Radial Pulses (L) Gastrointestinal: normal bowel sounds, non tender, soft Extremities: non-tender, normal capillary refill 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 Loop placed and Pacemaker placed 1. Loop removal SARWAT CURIEL DO 04/12/21 1604: History of Present Illness History of Present Illness Time Seen by Provider: 15:02 History of Present Illness Pt states he has no pain at loop recorder site. No problems after pacemaker placement, he is sitting up in bed and comfortable. Cardiology does not need Loop recorder any longer and would like it removed. Allergies and Home Medications Allergies Coded Allergies: fluconazole (Verified Allergy, Unknown, 09/14/20) Patient Home Medication List Home Medication List Reviewed: Yes Amlodipine Besylate (Amlodipine Besylate) 2.5 Mg Tablet, 2.5 MG PO DAILY, (Reported) Entered as Reported by: NESTOR BOLAND on 09/18/19825 Last Action: Continued Apixaban (Eliquis) 5 Mg Tablet, 5 MG PO BID, (Reported) Entered as Reported by: JANELLE RIVERA on 04/12/21815 Last Action: Held Aspirin (Aspirin EC) 81 Mg Tablet., 81 MG PO DAILY Prescribed by: POOL SHAH on 04/10/21857 Last Action: Continued Atorvastatin Calcium (Atorvastatin Calcium) 10 Mg Tablet, 10 MG PO HS, (Reported) Entered as Reported by: NICOLE FLOWERS on 04/09/211108 Last Action: Continued Clopidogrel Bisulfate (Clopidogrel) 75 Mg Tablet, 75 MG PO DAILY Prescribed by: POOL SHAH on 04/10/21857 Last Action: Continued Hydrochlorothiazide (Hydrochlorothiazide) 25 Mg Tablet, 25 MG PO DAILY, (Reported) Entered as Reported by: NICOLE FLOWERS on 04/09/211108 Last Action: Continued Lisinopril (Lisinopril) 40 Mg Tablet, 40 MG PO HS, (Reported) Entered as Reported by: NICOLE FLOWERS on 04/09/211108 Last Action: Continued Multivitamin (Multivitamin) 1 Each Tablet, 1 EACH PO DAILY, (Reported) Entered as Reported by: NICOLE FLOWERS on 04/09/211108 Last Action: Converted Discontinued Medications Amiodarone HCl (Amiodarone HCl) 200 Mg Tablet, 200 MG PO DAILY, (Reported) Entered as Reported by: NICOLE FLOWERS on 04/09/211108 Apixaban (Eliquis) 5 Mg Tablet, 5 MG PO BID, (Reported) Entered as Reported by: NESTOR BOLAND on 09/18/19825 Aspirin (Aspirin EC) 81 Mg Tablet., 81 MG PO DAILY, (Reported) Discontinued Reason: No Longer Taking Entered as Reported by: NESTOR BOLAND on 09/18/19825 Atorvastatin Calcium (Atorvastatin Calcium) 10 Mg Tablet, 10 MG PO DAILY, (Reported) Discontinued Reason: No Longer Taking Entered as Reported by: NESTOR BOLAND on 09/18/19825 Docusate Sodium (Colace) 100 Mg Capsule, 100 MG PO DAILY, (Reported) Discontinued Reason: No Longer Taking Entered as Reported by: BRITTANY THOMSON on 09/04/1321 Dronedarone HCl (Multaq) 400 Mg Tablet, 400 MG PO BID Discontinued Reason: No Longer Taking Prescribed by: POOL SHAH on 09/18/19 1024 Hydrochlorothiazide (Hydrochlorothiazide) 25 Mg Tablet, 25 MG PO DAILY, (Reported) Discontinued Reason: No Longer Taking Entered as Reported by: BRIANNE PETE on 01/08/14 1051 Lisinopril (Zestril) 20 Mg Tab, 20 MG PO HS, (Reported) Discontinued Reason: No Longer Taking Entered as Reported by: BRIANNE PETE on 01/08/14 1051 Multivitamin (Multi Vitamin Daily) 1 Each Tablet, 1 TAB PO DAILY, (Reported) Discontinued Reason: No Longer Taking Entered as Reported by: BRITTANY THOMSON on 09/04/13820 Past Aepqvhp-Yszgcv-Iugyil Hx Patient Social History Smoking Status: Former Smoker (2 packs/day for 22 years. Quit 25-30 years ago.) Type Used: Cigarettes Alcohol Use?: Yes (4 beers/day 3 times a week.) Substance type: Caffeine (2-3 cups of coffee a day), Nicotine Seasonal Allergies Seasonal Allergies: Yes Surgeries History of Surgeries: Yes (hemorrhoidectomy) Surgeries: Pacemaker Respiratory History of Respiratory Disorde: No Cardiovascular History of Cardiac Disorders: Yes Cardiac Disorders: Atrial Fibrillation, Hypertension Neurological History of Neurological Disord: No Genitourinary History of Genitourinary Disor: No Gastrointestinal History of Gastrointestinal Di: Yes Gastrointestinal Disorders: Hemorrhoids Musculoskeletal History of Musculoskeletal Dis: No Endocrine History of Endocrine Disorders: No HEENT History of HEENT Disorders: No Hearing Impairment: Denies Cancer History of Cancer: No Psychosocial History of Psychiatric Problem: No Family Medical History Significant Family History: Heart Disease (Heart issues in father) Review of Systems-General Constitutional: No chills, No dizziness, No fever EENTM: No blurred vision, No vision loss Respiratory: No cough, No dyspnea on exertion Cardiovascular: No chest pain; Hx of Intervention, palpitations Gastrointestinal: No abdominal pain, No nausea, No vomiting Genitourinary: No dysuria, No frequency Musculoskeletal: No joint pain, No muscle pain Skin: No change in color, No change in hair/nails Psychiatric/Neurological: Denies Anxiety, Denies Depressed, Denies Tremors Physical Exam-General Problems Physical Exam General Appearance: WD/WN, no apparent distress Eyes: Bilateral Eye PERRL, Bilateral Eye EOMI HEENT: No scleral icterus (R), No scleral icterus (L) Neck: supple, normal inspection Respiratory: chest non-tender, lungs clear, normal breath sounds, no respiratory distress, no accessory muscle use Cardiovascular: regular rate, rhythm, no murmur Gastrointestinal: non tender, soft, no organomegaly Extremities: non-tender, normal capillary refill, other (left arm in sling secondary to pacemaker implantation) 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 All questions answered to pt's satisfaction. Consent obtained. Discussed risks and complications not limited to pain, bleeding, infection and scar. Supervisory-Addendum Brief Verification & Attestation Participated in pt care: history, MDM, physical Personally performed: exam, history, MDM, supervision of care Care discussed with: Medical Student Procedures: n/a Verification and Attestation of Medical Student E/M Service A medical student performed and documented this service. I then reviewed and verified all information documented by the medical student and made modifications to such information, when appropriate. I personally performed a physical exam, medical decision making and then discussed any differences between the notes and made revisions as necessary to create one note. Sarwat Curiel , 04/12/21 , 16:05 FANNY HDEZ Apr 12, 2021 15:29 SARWAT CURIEL DO Apr 12, 2021 16:04
--- NOTE | 2021-04-12 16:06 | Progress Note-Post Operative ---
Post-Operative Progess Note Surgeon (s)/[employer]over (s) Surgeon SARWAT CURIEL DO [employer]: none Pre-Operative Diagnosis Hx of Afib and loop recorder placement Post-Operative Diagnosis Same Procedure & Operative Findings Date of Procedure 04/12/21 Procedure Performed/Findings Removal of loop recorder Anesthesia Type local lidocaine Estimated Blood Loss Estimated blood loss (mL): scant Specimens/Packing Specimens Removed loop recorder SARWAT CURIEL DO Apr 12, 2021 16:06
[2021-04-12] MEDS: ceFAZolin INJECTION 1,000 MG in WATER (STERILE) FOR INJECTION 10 ML IV SCH ×2 (17:40→23:48)
[2021-04-12 17:46] VITALS: BP 122/71
[2021-04-12 19:26] VITALS: BP 135/74
[2021-04-12] MEDS ORDERED: AtorvaSTATin TABLET 10 MG TABLET PO SCH (21:00)
[2021-04-12] MEDS ORDERED: lisINopril 40 MG (PRINIVIL) TABLET PO SCH (21:00)
[2021-04-12 23:48] VITALS: BP 131/80
[2021-04-13 04:00] VITALS: BP 137/82
[2021-04-13] MEDS ORDERED: CEFU500T63 PO (06:39)
--- NOTE | 2021-04-13 06:39 | Discharge Inst-Post CATH ---
Discharge Inst-CATH/EP Problems Reviewed?: Yes Post Cardiac Cath/EP D/C Inst Follow Up/Plan Appointment with Dr Tapia in one week <b>CARDIAC CATH/EP PROCEDURE DISCHARGE INSTRUCTIONS</b> ACTIVITY * Go Home directly and rest. * Limit activity of the leg (or wrist if it was used) for 7 days including aerobics, swimming, jogging, bicycling, etc. * Restrict stair-climbing for 7 days if possible, if not, climb up with your non-cath leg, then bring together on the same step. * Avoid lifting, pushing, pulling or excessive movement of the affected extremity for 7 days. * Customary sexual activity may be resumed after 2 days-use caution not to use a position that strains or causes pain to the affected extremity. * No driving for 24 hours. * NO SMOKING. * Avoid straining for bowel movements for 7 days. * Gentle walking on level ground is allowed. * Returning to work will depend on the type of procedure and the results. Your doctor will discuss this with you. CALL YOUR DOCTOR FOR ANY OF THE FOLLOWING: *If bleeding from the puncture site occurs- Apply gentle pressure to site with clean cloth and call your doctor or EMS. * If a knot or lump forms under the skin, increases in size, or causes pain. * If bruising appears to be worsening or moving further down your leg instead of disappearing. * Temperature above 101 F. CARE OF YOUR GROIN INCISION; * Bruising or purple discoloration of the skin near the puncture site is common. * You may shower only, no bathtub bathing for 5 days. Be careful to avoid slipping as your leg may feel stiff. * If a closure device was used on your femoral artery, please see the attached guide regarding care of the device and your leg. * Leave dressing on FOR 24 hours. CARE OF YOUR WRIST INCISION; * Bruising or purple discoloration of the skin near the puncture site is common. * You may shower. * DO NOT submerge wrist. * Leave dressing on FOR 24 hours. POOL TAPIA MD Apr 13, 2021 06:39
[2021-04-13] MEDS ORDERED: MULTIVIT W/MINERALS TAB (THERAGRAN M) PO SCH (07:00)
[2021-04-13 08:00] VITALS: BP 123/73
[2021-04-13] MEDS: ceFAZolin INJECTION 1,000 MG in WATER (STERILE) FOR INJECTION 10 ML IV SCH (08:10)
[2021-04-13] MEDS ORDERED: amLODIPine 2.5MG (NORVASC) TAB PO SCH (09:00)
[2021-04-13] MEDS ORDERED: ASPIRIN E.C. 81 MG (ECOTRIN) TAB PO SCH (09:00)
[2021-04-13] MEDS ORDERED: CLOPIDOGREL 75 MG (PLAVIX) TABLET PO SCH (09:00)
--- NOTE | 2021-04-13 09:03 | Cardiology Progress Note ---
Subjective Date Seen by Provider: Apr 13, 2021 Time Seen by Provider: 09:01 Subjective/Events-last exam Patient is laying down in bed, pacemaker site is healing well. No chest pain Review of Systems General: No Chills, No Night Sweats, No Fatigue, No Malaise, No Appetite, No Other HEENT: No Head Aches, No Visual Changes, No Eye Pain, No Ear Pain, No Dysphasia, No Sinus Congestion, No Post Nasal Drip, No Sore Throat, No Other Pulmonary: No Dyspnea, No Cough, No Pleuritic Chest Pain, No Other Cardiovascular: No: Chest Pain, Palpitations, Orthopnea, Paroxysmal Noc. Dyspnea, Edema, Lt Headedness, Other Objective-Cardiology Exam Last Set of Vital Signs Vital Signs 04/13/21 04/13/21 08:00 08:30 Temp 36.3 Pulse 60 Resp 14 B/P (MAP) 123/73 (90) Pulse Ox 94 O2 Delivery Room Air I&O Intake and Output 04/13/21 00:00 Intake Total 1510 ml Balance 1510 ml Intake Oral 1000 ml IV Total 510 ml # Voids 1 General: Alert, Oriented X3, Cooperative HEENT: Atraumatic, PERRLA Neck: Supple, No JVD, No Thyromegaly Lungs: Clear to Auscultation, Normal Air Movement Heart: Regular Rate, Normal S1, Normal S2, No Murmurs Abdomen: Normal Bowel Sounds, Soft, No Tenderness, No Hepatosplenomegaly, No Masses Extremities: No Clubbing, No Cyanosis, No Edema, Normal Pulses, No Tenderness/Swelling Skin: No Rashes, No Breakdown, No Significant Lesion Neuro: Normal Gait, Normal Speech, Strength at 5/5 X4 Ext, Normal Tone, Sensation Intact Psych/Mental Status: Mental Status NL, Mood NL A/P-Cardiology Admission Diagnosis Sinus node dysfunction Coronary artery disease Hypertension Hyperlipidemia Assessment/Plan Sinus node dysfunction with sinus pauses, status post dual-chamber pacemaker implant on April 12, 2021, site is healing well. Paroxysmal atrial fibrillation, restart Eliquis Coronary artery disease, status post angioplasty and stenting. Doing well. Hypertension, monitor blood pressure Hyperlipidemia, monitor lipids Obstructive sleep apnea using CPAP POOL SHAH MD Apr 13, 2021 09:03
[2021-04-13 09:42] VITALS: BP 123/73
== END 2021-04-13 09:45 | disposition home or self-care (01) ==
LOC: CSD 12:02 → CATH 12:02 → CSD 14:56 → CATH 04-13 09:45
PROVIDERS: ATTEND Internal Medicine Cardiovascular Disease
DX: I49.5 Sick sinus syndrome (principal); I48.0 Paroxysmal atrial fibrillation; I25.10 Atherosclerotic heart disease of native coronary artery without angina pectoris; I10 Essential (primary) hypertension; I34.0 Nonrheumatic mitral (valve) insufficiency; I65.29 Occlusion and stenosis of unspecified carotid artery; D50.9 Iron deficiency anemia, unspecified; G47.30 Sleep apnea, unspecified; E78.2 Mixed hyperlipidemia; E78.5 Hyperlipidemia, unspecified; E66.9 Obesity, unspecified; Z79.01 Long term (current) use of anticoagulants; Z79.899 Other long term (current) drug therapy
CPT/HCPCS: 33208; 71045; C1785; C1898 ×2

== ENCOUNTER → 2022-03-10 | Outpatient (CLI) | payer MEDICARE, OTHER ==
[~2022-03-10] MED LIST changes: -AMIO200T6 PO; +AMIO200T65 PO; +CEFU500T63 PO; -HEParin (CATH LAB) 1,000 ML IV ONE; -LIDOCAINE 1% INJ 20 ML 20 ML VIAL ONE; -NS IV 1000 ML 1,000 ML IV SCH; -NS IV 1000 ML 2,000 ML ONE; -PATIENT MAY USE OWN MEDS, ALL PO SCH; -ceFAZolin INJECTION 1,000 MG ONE
--- NOTE | 2022-03-10 13:35 | Diagnostic Imaging Report ---
INDICATION: Fullness in the left axilla. Sonographic interrogation of the area of fullness in the left axilla was performed. Several small lymph nodes are present in the left axilla, largest 1.7 x 0.4 x 1.1 cm. These have a normal appearance. No fluid collections are seen. IMPRESSION: Unremarkable left axillary ultrasound. Dictated by: Dictated on workstation # [id number]
== END ==
LOC: RAD 12:45
PROVIDERS: ATTEND Surgery
DX: R22.2 Localized swelling, mass and lump, trunk (principal)
CPT/HCPCS: 76881

== ENCOUNTER → 2023-06-07 | Outpatient (CLI) | payer MEDICARE, OTHER | LOC: CARD 10:54 | PROVIDERS: ATTEND Internal Medicine Cardiovascular Disease | DX: I51.7 Cardiomegaly (principal) | CPT/HCPCS: 93306 ==